=== PATIENT | female | born 1945 | race Caucasian/White ===

== ENCOUNTER 2017-12-18 15:27 | Outpatient (CLI) | payer MEDICARE, OTHER ==
[~2017-12-18 15:27] MED LIST: ISOVUE-370 76%-LOCM 1 ML ONE
--- NOTE | 2017-12-18 18:22 | CT ---
CONTRAST ENHANCED CTA CAROTID ARTERIES: 12/18/17 HISTORY: Carotid artery stenosis, I65.29. Contrast enhanced CTA is performed. 2D and 3D reconstructed images performed on an independent 3D wor kstation. Calcification of the aortic arch seen. The right brachiocephalic artery is patent. Some areas of calcified atherosclerotic plaque seen in the mid right brachiocephalic artery. The right and left subclavian artery is patent. The right and left vertebral arteries are patent. The basilar artery is unremarkable. The right common carotid artery is patent. There is some minimal ath erosclerotic plaque in the distal most aspect of the right CCA extending to the right ICA. More dista lly the right ICA is patent. Left common carotid artery is patent in the proximal mid portions. In the distal most aspect just pro ximal to the bifurcation and at the level of the bifurcation, there is areas of focal atherosclerotic calcified plaque resulting in approximately 50% distal left CCA stenosis. No significant plaque exte nds into the left ICA. Intracranially, the posterior circulation including the posterior cerebral arteries are patent. IMPRESSION: Approximately 50% distal most aspect left common carotid artery calcified plaque. POS: JANICE
== END 2017-12-18 15:28 | disposition home or self-care (01) ==
LOC: BICCT 15:27
PROVIDERS: ATTEND Thoracic Surgery (Cardiothoracic Vascular Surgery)
DX: I65.22 Occlusion and stenosis of left carotid artery (principal)
CPT/HCPCS: 70498; 82565

== ENCOUNTER 2018-02-03 14:54 | Outpatient (CLI) | payer MEDICARE, OTHER | END 2018-02-03 14:55 | disposition home or self-care (01) | LOC: BICMAMMO 14:54 | PROVIDERS: ATTEND Internal Medicine | DX: Z12.31 Encounter for screening mammogram for malignant neoplasm of breast (principal); R92.1 Mammographic calcification found on diagnostic imaging of breast; Z80.3 Family history of malignant neoplasm of breast | CPT/HCPCS: 77063; 77067 ==

== ENCOUNTER 2018-03-15 13:12 | Outpatient (CLI) | payer MEDICARE, OTHER ==
--- NOTE | 2018-03-15 14:53 | RAD ---
LEFT SMALL TOE THREE VIEWS: 03/15/2018 HISTORY: Pain and ulceration, left fifth tarsal bone. History of diabetes. FINDINGS: There is subcutaneous soft tissue swelling about the left small toe. No obvious osseous destruction is present. No fracture or dislocation is identified. There does appear to be fusion of the distal and middle phalanx, which is likely on a developmental basis. IMPRESSION: Prominent subcutaneous soft tissue swelling, left small toe. No obvious osseous destruction is seen to suggest osteomyelitis, based on radiographic evaluation. However, if there is concern for osteomy elitis, MRI is recommended for further evaluation. POS: JANICE
== END 2018-03-15 13:13 | disposition home or self-care (01) ==
LOC: BICRAD 13:12
PROVIDERS: ATTEND Podiatrist
DX: E11.621 Type 2 diabetes mellitus with foot ulcer (principal); L97.529 Non-pressure chronic ulcer of other part of left foot with unspecified severity

== ENCOUNTER 2018-10-13 08:13 | Emergency (ER) | payer MEDICARE, OTHER | END 2018-10-13 09:26 | disposition home or self-care (01) | LOC: ERS 08:13 | DX: I83.891 Varicose veins of right lower extremity with other complications (principal); E10.9 Type 1 diabetes mellitus without complications; E03.9 Hypothyroidism, unspecified; E78.5 Hyperlipidemia, unspecified; E78.00 Pure hypercholesterolemia, unspecified; I10 Essential (primary) hypertension; F32.9 Major depressive disorder, single episode, unspecified; Z79.899 Other long term (current) drug therapy; W26.8XXA Contact with other sharp object(s), not elsewhere classified, initial encounter | CPT/HCPCS: 99283 ==

== ENCOUNTER 2018-12-29 08:48 | Outpatient (CLI) | payer MEDICARE, OTHER ==
--- NOTE | 2018-12-29 10:31 | RAD ---
LEFT FIFTH TOE: HISTORY: Ulcer on fifth toe. COMPARISON: Films of the fifth toe left foot from 03/15/2018. FINDINGS: No osseous abnormality. No fracture or erosive change. No destructive or lytic process. Soft tissue swelling appears unchanged from the prior exam. No evidence of acute osseous abnormality. POS: OFF
== END 2018-12-29 08:49 | disposition home or self-care (01) ==
LOC: BICRAD 08:48
PROVIDERS: ATTEND Podiatrist
DX: L89.90 Pressure ulcer of unspecified site, unspecified stage (principal)

== ENCOUNTER 2019-02-04 09:28 | Outpatient (CLI) | payer MEDICARE, OTHER ==
--- NOTE | 2019-02-04 11:13 | MMO ---
Bilateral MAMMO Bilat Screen [facility]. CLINICAL HISTORY: Patient is 73 years old and is seen for screening. The patient has the following family history of breast cancer: mother, malignant (generic). The patient has no personal history of cancer. The patient has a history of left Excisional Biopsy in 1976 - benign. VIEWS: The views performed were: bilateral craniocaudal with tomosynthesis and bilateral mediolateral oblique with tomosynthesis. FILMS COMPARED: The present examination has been compared to prior imaging studies performed at [facility] on 01/25/2014, 02/07/2015, 02/11/2016 and 02/03/2018. This study has been interpreted with the assistance of computer-aided detection. MAMMOGRAM FINDINGS: The breasts are heterogeneously dense, which could obscure a lesion on mammography. There are benign appearing calcifications seen in both breasts. There are no suspicious masses, suspicious calcifications, or new areas of architectural distortion. IMPRESSION: THERE IS NO MAMMOGRAPHIC EVIDENCE OF MALIGNANCY. A ROUTINE FOLLOW-UP MAMMOGRAM IN 1 YEAR IS RECOMMENDED. THE RESULTS OF THIS EXAM WERE SENT TO THE PATIENT. ACR BI-RADS Category 2 - Benign finding MAMMOGRAPHY NOTE: 1. A negative mammogram report should not delay a biopsy if a dominant of clinically suspicious mass is present. 2. Approximately 10% to 15% of breast cancers are not detected by mammography. 3. Adenosis and dense breasts may obscure an underlying neoplasm. Reported by: ANGELICA CORDON MD Electonically Signed: [id number]
== END 2019-02-04 09:29 | disposition home or self-care (01) ==
LOC: BICMAMMO 09:28
PROVIDERS: ATTEND Internal Medicine
DX: Z12.31 Encounter for screening mammogram for malignant neoplasm of breast (principal); Z80.3 Family history of malignant neoplasm of breast
CPT/HCPCS: 77063; 77067

== ENCOUNTER 2019-04-02 01:54 | Emergency (ER) | payer MEDICARE, OTHER | END 2019-04-02 02:26 | disposition home or self-care (01) | LOC: ERS 01:54 | DX: R21 Rash and other nonspecific skin eruption (principal); T36.8X5A Adverse effect of other systemic antibiotics, initial encounter; L50.9 Urticaria, unspecified; F32.9 Major depressive disorder, single episode, unspecified; E03.9 Hypothyroidism, unspecified; E78.5 Hyperlipidemia, unspecified; E78.00 Pure hypercholesterolemia, unspecified; I10 Essential (primary) hypertension; E10.9 Type 1 diabetes mellitus without complications; Z79.899 Other long term (current) drug therapy | CPT/HCPCS: 99283 ==

== ENCOUNTER 2019-12-09 07:25 | Outpatient (CLI) | payer MEDICARE, OTHER ==
[2019-12-09 16:02] LABS: Hemoglobin 12.4 g/dL (12.0-16.0); Mean Corpuscular HGB CONC 32.9 g/dL (32.0-36.0); Mean Corpuscular Hemoglobin 29.4 pg (27.0-31.0); Mean Corpuscular Volume 89.3 fL (78.0-98.0); Mean Platelet Volume 9.9 fL (7.4-10.4); Platelet Count 149 thou/uL (130-400); RBC Distribution Width 12.8 % (11.5-14.5); Red Blood Cell (RBC) Count 4.22 mill/uL (4.20-5.40); White Blood Cell (WBC) Count 4.6 thou/uL (4.8-10.8)
[2019-12-09 16:34] LABS: Anion Gap 9 mmol/L (10-20); BUN (Urea Nitrogen) 11 mg/dL (9.8-20.1); Calc. Creatinine Clearance 0 mL/min (70-130); Calcium 8.7 mg/dL (7.8-10.44); Carbon Dioxide 28 mmol/L (23-31); Chloride 107 mmol/L (98-107); Estimated GFR-MDRD 66; Glucose 149 mg/dL (83-110); Potassium 4.3 mmol/L (3.5-5.1); Sodium 140 mmol/L (136-145)
[2019-12-10 15:22] LABS: SARS-CoV-2 MS2 Positive; SARS-CoV-2 N Gene Negative; SARS-CoV-2 S Gene Negative; SARS-CoV-2 by NAA Not Detected (NotDetected); SARS-CoV-2 orf1ab Negative
== END 2019-12-09 07:26 | disposition home or self-care (01) ==
LOC: LABBT 07:25
PROVIDERS: ATTEND Thoracic Surgery (Cardiothoracic Vascular Surgery)
DX: Z01.812 Encounter for preprocedural laboratory examination (principal); Z20.828 Contact with and (suspected) exposure to other viral communicable diseases; I65.29 Occlusion and stenosis of unspecified carotid artery
CPT/HCPCS: 80048; 85027; U0003; 87635

== ENCOUNTER 2019-12-09 12:30 | Inpatient (IN) | payer MEDICARE, OTHER ==
[2019-12-14] MEDS ORDERED: Heparin 5,000 UNITS/ML VIAL ONE (06:28)
[2019-12-14] MEDS ORDERED: Protamine Sulfate 50 MG/5 ML VIAL ONE (06:28)
[2019-12-14] MEDS ORDERED: Midazolam HCl 2 mg/2 ml Vial ONE (06:37)
[2019-12-14] MEDS ORDERED: Heparin 10,000 UNITS/ 10 ML VIAL ONE (06:37)
[2019-12-14] MEDS ORDERED: Fentanyl 100 MCG/2 ML VIAL ONE (06:37)
[2019-12-14] MEDS ORDERED: Insulin Regular 300 UNITS/3 ML VIAL ONE (07:18)
[2019-12-14] MEDS ORDERED: Phenylephrine 10 MG/ML VIAL ONE (07:22)
[2019-12-14] MEDS ORDERED: Ondansetron HCl/PF 4 MG/2 ML Vial IVP PRN (08:51)
[2019-12-14] MEDS ORDERED: Fentanyl 100 MCG/2 ML VIAL SLOW IVP PRN (09:00)
[2019-12-14] MEDS ORDERED: Sodium Chloride 0.9% 1,000 ML IV SCH (09:00)
[2019-12-14] MEDS ORDERED: FLUoxetine HCl 20 MG CAP PO SCH (09:00)
[2019-12-14] MEDS ORDERED: SUBCUTANEOUS INSULIN PUMP SC SCH (09:00)
[2019-12-14] MEDS ORDERED: Alogliptin 6.25 MG TAB PO SCH (09:00)
[2019-12-14] MEDS ORDERED: HYDROcodone/Acetaminophen 5/325 mg Tablet PO PRN ×2 (09:00)
[2019-12-14] MEDS ORDERED: Insulin Regular 300 UNITS/3 ML VIAL SC PRN (09:00)
[2019-12-14] MEDS ORDERED: Acetaminophen 325 MG TAB PO PRN (09:00)
[2019-12-14] MEDS ORDERED: Ondansetron PF 4 MG/2 ML Vial IVP PRN (09:00)
[2019-12-14] MEDS ORDERED: Clopidogrel Bisulfate 75 MG TAB PO SCH (09:00)
[2019-12-14] MEDS ORDERED: Aspirin Chewable 81 MG TAB PO SCH (09:00)
[2019-12-14] MEDS ORDERED: Phenylephrine 10 MG/NS 250 ML 250 ML IVPB PRN (09:00)
[2019-12-14] MEDS ORDERED: Rosuvastatin 20 MG TAB PO SCH (09:00)
[2019-12-14] MEDS ORDERED: Nitroglycerin 50 MG/250 ML BOT 250 ML IVPB PRN (09:00)
[2019-12-14 10:37] VITALS: BMI 26.6
[2019-12-14] MEDS ORDERED: Lidocaine 1% PF 5 ML VIAL ONE (11:18)
[2019-12-14] MEDS ORDERED: Dexamethasone 20 MG/5 ML VIAL ONE (11:18)
[2019-12-14] MEDS ORDERED: Ketorolac Tromethamine 30 MG/ML VIAL ONE (11:18)
[2019-12-14] MEDS ORDERED: Labetalol HCl 100 MG/20 ML VIAL ONE (11:18)
[2019-12-14] MEDS ORDERED: PROPOFOL 200 MG/20 ML VIAL ONE (11:18)
[2019-12-14] MEDS ORDERED: Ondansetron PF 4 MG/2 ML Vial ONE (11:18)
[2019-12-14] MEDS ORDERED: Rocuronium Bromide 10 MG/ML (10ML VIAL) ONE (11:18)
[2019-12-14] MEDS ORDERED: EPHEDRINE 25 MG/5 ML SYRINGE ONE (11:18)
[2019-12-14] MEDS ORDERED: Glycopyrrolate 0.2 MG/ML 5 ML SYRINGE ONE ×2 (11:18)
[2019-12-14] MEDS: Amlodipine 10 MG TAB PO SCH (11:27)
--- NOTE | 2019-12-14 11:29 | OP ---
DATE OF PROCEDURE: 12/14/2019 PREOPERATIVE DIAGNOSIS: Severe left carotid stenosis. PROCEDURE PERFORMED: Transcarotid artery revascularization left using an 8 x 40 stent, no balloon. DESCRIPTION OF PROCEDURE: After adequate anesthesia had been obtained, the patient was prepped and draped and Dr. Vega placed a right common femoral venous sheath. I made a slight small incision in the supraclavicular neck mobilizing the common carotid artery. The vagus nerve was not visualized. After a loop had been placed here, the patient was heparinized. A pursestring suture placed in the carotid and after an ACT came back, needle puncture and then wire advanced and a small catheter placed, following which angiograms were obtained. The J-wire was then advanced into the distal common carotid artery, at which time the larger sheath was advanced and secured to the skin. Repeat angiogram was done, following which the carotid artery was clamped proximally, reversal begun and a small wire advanced into the internal carotid artery. The stent was then deployed and completion angiography obtained. There was slight wasting at the common internal junction, however, it was widely patent with good flow. The patient then had the sheath removed from the neck, Prolene sutures secured with good hemostasis. Protamine was then used to reverse the heparin, and the sheath in the groin was removed. There was a small skin bleeder that was secured with a suture. The patient tolerated the procedure. Job ID: [id number]
[2019-12-14] MEDS ORDERED: Lisinopril 10 MG TAB PO SCH (12:00)
[2019-12-14] MEDS: CEFAZOLIN 2 GM in Premix Bag 1 BAG IVPB SCH (15:40)
[2019-12-15] MEDS: CEFAZOLIN 2 GM in Premix Bag 1 BAG IVPB SCH ×2 (00:21→07:26)
[2019-12-15 01:12] VITALS: TEMP 98.2
[2019-12-15] MEDS: Amlodipine 10 MG TAB PO SCH (06:05)
[2019-12-15 06:06] VITALS: BP 170/91
[2019-12-15] MEDS ORDERED: Lisinopril 10 MG TAB PO SCH ×2 (09:00)
== END 2019-12-15 08:30 | disposition home or self-care (01) | DRG 36 ==
LOC: SURG A 12-14 05:58 → CCU 12-14 10:02
PROVIDERS: ADMIT Thoracic Surgery (Cardiothoracic Vascular Surgery); ATTEND Thoracic Surgery (Cardiothoracic Vascular Surgery)
PROC: 037L3DZ Dilation of Left Internal Carotid Artery with Intraluminal Device, Percutaneous Approach (ICD-10-PCS; principal; 2019-12-14)
DX: I65.22 Occlusion and stenosis of left carotid artery (principal); E03.9 Hypothyroidism, unspecified; E78.5 Hyperlipidemia, unspecified; F41.9 Anxiety disorder, unspecified; F32.9 Major depressive disorder, single episode, unspecified; E10.22 Type 1 diabetes mellitus with diabetic chronic kidney disease; N18.9 Chronic kidney disease, unspecified; I12.9 Hypertensive chronic kidney disease with stage 1 through stage 4 chronic kidney disease, or unspecified chronic kidney disease; Z79.899 Other long term (current) drug therapy; Z79.82 Long term (current) use of aspirin; Z79.4 Long term (current) use of insulin; Z90.710 Acquired absence of both cervix and uterus; Z90.49 Acquired absence of other specified parts of digestive tract
CPT/HCPCS: 36416; 76000; C1876; C1884; J0690; J1100; J1642; J1644; J1815; J1885; J2250; J2370; J2405; J2704; J2720; J3010

== ENCOUNTER 2020-02-10 13:24 | Outpatient (CLI) | payer MEDICARE, OTHER ==
--- NOTE | 2020-02-10 14:50 | MMO ---
Bilateral MAMMO Bilat Screen [facility]. CLINICAL HISTORY: Patient is 74 years old and is seen for screening. The patient has the following family history of breast cancer: mother, malignant (generic). The patient has no personal history of cancer. The patient has a history of left Excisional Biopsy in 1976 - benign. VIEWS: The views performed were: bilateral craniocaudal with tomosynthesis and bilateral mediolateral oblique with tomosynthesis. FILMS COMPARED: The present examination has been compared to prior imaging studies performed at [facility] on 02/07/2015, 02/11/2016, 02/03/2018 and 02/04/2019. This study has been interpreted with the assistance of computer-aided detection. MAMMOGRAM FINDINGS: The breasts are heterogeneously dense, which could obscure a lesion on mammography. Benign calcifications are noted bilaterally. There are no suspicious masses, suspicious calcifications, or new areas of architectural distortion. IMPRESSION: THERE IS NO MAMMOGRAPHIC EVIDENCE OF MALIGNANCY. A ROUTINE FOLLOW-UP MAMMOGRAM IN 1 YEAR IS RECOMMENDED. THE RESULTS OF THIS EXAM WERE SENT TO THE PATIENT. ACR BI-RADS Category 2 - Benign finding MAMMOGRAPHY NOTE: 1. A negative mammogram report should not delay a biopsy if a dominant of clinically suspicious mass is present. 2. Approximately 10% to 15% of breast cancers are not detected by mammography. 3. Adenosis and dense breasts may obscure an underlying neoplasm. Reported by: JANE FRANK MD Electonically Signed: [id number]
== END 2020-02-10 13:25 | disposition home or self-care (01) ==
LOC: BICMAMMO 13:24
PROVIDERS: ATTEND Internal Medicine
DX: Z12.31 Encounter for screening mammogram for malignant neoplasm of breast (principal); Z80.3 Family history of malignant neoplasm of breast; Z91.89 Other specified personal risk factors, not elsewhere classified
CPT/HCPCS: 77063; 77067

== ENCOUNTER 2021-02-11 08:21 | Outpatient (CLI) | payer MEDICARE, OTHER | END 2021-02-11 08:22 | disposition home or self-care (01) | LOC: BICMAMMO 08:21 | PROVIDERS: ATTEND Internal Medicine | DX: Z12.31 Encounter for screening mammogram for malignant neoplasm of breast (principal); Z80.3 Family history of malignant neoplasm of breast | CPT/HCPCS: 77063; 77067 ==

== ENCOUNTER 2022-03-06 08:49 | Outpatient (CLI) | payer MEDICARE, OTHER | END 2022-03-06 08:50 | disposition home or self-care (01) | LOC: BICMAMMO 08:49 | PROVIDERS: ATTEND Internal Medicine | DX: Z12.31 Encounter for screening mammogram for malignant neoplasm of breast (principal); Z91.89 Other specified personal risk factors, not elsewhere classified; Z80.3 Family history of malignant neoplasm of breast | CPT/HCPCS: 77063; 77067 ==

== ENCOUNTER 2023-03-13 12:44 | Outpatient (CLI) | payer MEDICARE, OTHER | END 2023-03-13 12:45 | disposition home or self-care (01) | LOC: BICMAMMO 12:44 | PROVIDERS: ATTEND Internal Medicine | DX: Z12.31 Encounter for screening mammogram for malignant neoplasm of breast (principal); Z80.3 Family history of malignant neoplasm of breast; Z91.89 Other specified personal risk factors, not elsewhere classified | CPT/HCPCS: 77063; 77067 ==

== ENCOUNTER 2024-04-11 12:23 | Outpatient (CLI) | payer MEDICARE, OTHER | END 2024-04-11 12:24 | disposition home or self-care (01) | LOC: BICMAMMO 12:23 | PROVIDERS: ATTEND Internal Medicine | DX: Z12.31 Encounter for screening mammogram for malignant neoplasm of breast (principal); Z80.3 Family history of malignant neoplasm of breast; Z91.89 Other specified personal risk factors, not elsewhere classified | CPT/HCPCS: 77063; 77067 ==

== ENCOUNTER 2024-10-30 13:54 | Emergency (ER) | payer MEDICARE, OTHER ==
[2024-10-30 15:01] LABS: Actual Bicarbonate (HCO3v) 24.6 mEq/L (22-28); Base Excess -2.4 mEq/L (-2.0 to +3.0); Calcium, Ionized (venous) 1.10 mmol/L (1.16-1.32); Chloride (VBG) 100 mmol/L (98-106); Hematocrit-VBG 40 % (36.0-47.0); Hemoglobin (Hb) 13.5 g/dL (11.7-16.1); Potassium (VBG) 3.84 mmol/L (3.70-5.30); Sodium 138 mmol/L (133-146)
[2024-10-30 15:03] LABS: Bacteria/HPF 2+ HPF (None Seen); CAUTI Indications for Culture Pelvic or flank pain; Glucose, Urine (Dipstick) Normal (Negative); Leukocyte 500 Leu/uL (Negative); Protein, Urine (Dipstick) Negative (Neg-Trace); RBC/HPF 0-3 HPF (0-3); Specific Gravity, Urine 1.014 (1.002-1.036); WBC/HPF 21-50 HPF (0-3)
[2024-10-30 15:04] LABS: #Basophils Less than 0.03 10x3/uL (0.0-0.2); #Eosinophils 0.23 10x3/uL (0.0-0.7); #Monocytes 0.55 10x3/uL (0.11-0.59); #Neutrophils 3.97 10x3/uL (1.40-6.50); %Basophils 0.3 % (0.0-1.0); %Eosinophils 3.9 % (0.0-10.0); %Lymphocytes 19.5 % (21.0-51.0); %Monocytes 9.3 % (0.0-10.0); %Neutrophils 66.8 % (42.0-75.0); Hematocrit 37.7 % (36.0-47.0); Hemoglobin 12.0 g/dL (12.0-16.0); Mean Corpuscular Hemoglobin 29.3 pg (27.0-31.0); Mean Corpuscular Volume 92.0 fL (78.0-98.0); Platelet Count 195 10x3/uL (130-400); Red Blood Cell (RBC) Count 4.10 mill/uL (4.20-5.40); White Blood Cell (WBC) Count 5.94 10x3/uL (4.8-10.8)
[2024-10-30 15:05] LABS: Urine Culture Reflex Yes Yes
[2024-10-30 15:17] LABS: ALT (SGPT) 11 U/L (Less than 34); AST (SGOT) 26 U/L (11-34); Albumin 3.7 g/dL (3.1-4.5); Alkaline Phosphatase 76 U/L (40-110); Anion Gap 14 mmol/L (10-20); BUN (Urea Nitrogen) 23 mg/dL (9.8-20.1); Bilirubin, Total 0.2 mg/dL (0.3-1.2); Calc. Creatinine Clearance 0 mL/min (70-130); Calcium 8.6 mg/dL (7.8-10.44); Carbon Dioxide 26 mmol/L (23-31); Chloride 102 mmol/L (98-107); Globulin 3.0 g/dL (2.4-3.5); Glucose 174 mg/dL (83-110); Potassium 3.8 mmol/L (3.5-5.1); Sodium 138 mmol/L (136-145)
[2024-10-30] MEDS ORDERED: Iopamidol-370 76% 500 ML MDV (1 ML CHARGE) ONE (15:57)
[2024-10-30] MEDS ORDERED: cefTRIAXone (ROCEPHIN) 2 GM VIAL ONE (16:02)
== END 2024-10-30 17:25 | disposition home or self-care (01) ==
LOC: ERS 13:54
DX: K62.89 Other specified diseases of anus and rectum (principal); N39.0 Urinary tract infection, site not specified; E10.9 Type 1 diabetes mellitus without complications; I10 Essential (primary) hypertension; E78.00 Pure hypercholesterolemia, unspecified; E03.9 Hypothyroidism, unspecified; Z55.6 Problems related to health literacy
CPT/HCPCS: 74177; 80053; 81001; 82010; 82805; 83605; 85025; 87040; 87077; 87086; 87186; 93005; 94760; 96374; 99284; J0696; Q9967

== ENCOUNTER 2024-11-07 02:05 | Inpatient (IN) | payer MEDICARE, OTHER ==
[2024-11-07] MEDS ORDERED: Ondansetron PF 4 MG/2 ML Vial ONE ×2 (02:32→06:53)
[2024-11-07 04:23] VITALS: BMI 23.7
[2024-11-07] MEDS ORDERED: Rocuronium Bromide 10 MG/ML (10ML VIAL) ONE (06:53)
[2024-11-07] MEDS ORDERED: fentaNYL PF 100 MCG/2 ML SYRINGE ONE (06:53)
[2024-11-07] MEDS ORDERED: PROPOFOL 40 ML ONE (06:53)
[2024-11-07] MEDS ORDERED: Lidocaine 1% PF 5 ML VIAL ONE (06:53)
[2024-11-07] MEDS ORDERED: SUGAMMADEX SODIUM 200 MG/2 ML VIAL ONE (06:54)
[2024-11-07] MEDS ORDERED: Heparin 5,000 UNITS/ML VIAL ONE (06:55)
[2024-11-07] MEDS ORDERED: Acetaminophen 325 MG TAB ONE (06:55)
[2024-11-07] MEDS ORDERED: metroNIDAZOLE 500 MG (100 mL) BAG ONE (06:56)
[2024-11-07] MEDS ORDERED: CEFAZOLIN 2 GM VIAL ONE (06:56)
[2024-11-07] MEDS ORDERED: Bupivacaine 0.25% HCL 30 ML VIAL ONE (07:05)
[2024-11-07] MEDS ORDERED: diphenhydrAMINE 50 MG/ML VIAL ONE (07:56)
[2024-11-07] MEDS ORDERED: PHENYLEPHRINE-NS 100 MCG/ML 10 ML SYRINGE ONE (07:56)
[2024-11-07] MEDS ORDERED: hydrALAZINE 20 MG/ML VIAL SLOW IVP PRN (09:23)
[2024-11-07] MEDS ORDERED: HYDROmorphone 2 MG/ML VIAL ONE (09:33)
[2024-11-07] MEDS: Rosuvastatin 20 MG TAB PO SCH (14:37)
[2024-11-07] MEDS: Acetaminophen 325 MG TAB PO PRN (18:14)
[2024-11-07] MEDS: Acetaminophen 325 MG TAB ONE (18:38)
[2024-11-08] MEDS: Ondansetron PF 4 MG/2 ML Vial IVP PRN (00:09)
[2024-11-08 04:48] LABS: #Basophils Less than 0.03 10x3/uL (0.0-0.2); #Eosinophils Less than 0.03 10x3/uL (0.0-0.7); #Monocytes 0.71 10x3/uL (0.11-0.59); #Neutrophils 6.20 10x3/uL (1.40-6.50); %Basophils 0.1 % (0.0-1.0); %Eosinophils 0.1 % (0.0-10.0); %Lymphocytes 8.3 % (21.0-51.0); %Monocytes 9.4 % (0.0-10.0); %Neutrophils 81.7 % (42.0-75.0); Hematocrit 31.8 % (36.0-47.0); Hemoglobin 10.4 g/dL (12.0-16.0); Mean Corpuscular Hemoglobin 28.8 pg (27.0-31.0); Mean Corpuscular Volume 88.1 fL (78.0-98.0); Platelet Count 152 10x3/uL (130-400); Red Blood Cell (RBC) Count 3.61 mill/uL (4.20-5.40); White Blood Cell (WBC) Count 7.59 10x3/uL (4.8-10.8)
[2024-11-08 05:12] LABS: Anion Gap 15 mmol/L (10-20); BUN (Urea Nitrogen) 11 mg/dL (9.8-20.1); Calc. Creatinine Clearance 60 mL/min (70-130); Calcium 8.1 mg/dL (7.8-10.44); Carbon Dioxide 18 mmol/L (23-31); Chloride 91 mmol/L (98-107); Glucose 286 mg/dL (83-110); Potassium 4.5 mmol/L (3.5-5.1); Sodium 119 mmol/L (136-145)
[2024-11-08 06:57] LABS: Sodium 119 mmol/L (136-145)
[2024-11-08] MEDS ORDERED: Dextrose 50% Abboject 50 ML SYRINGE SLOW IVP PRN (07:28)
[2024-11-08] MEDS ORDERED: Glucagon 1 MG/ML KIT IM PRN (07:28)
[2024-11-08] MEDS: Enoxaparin 40 MG (0.4 mL) SYRINGE SC SCH (09:20)
[2024-11-08] MEDS: Metoprolol Succinate XL 25 MG ER.TAB PO SCH (09:20)
[2024-11-08] MEDS: Ezetimibe 10 MG TAB PO SCH (09:21)
[2024-11-08] MEDS: Lisinopril 10 MG TAB PO SCH (09:21)
[2024-11-08] MEDS: Pantoprazole 40 MG DR.TAB PO SCH (09:21)
[2024-11-08 15:44] LABS: Sodium 122 mmol/L (136-145)
[2024-11-09 05:24] LABS: #Basophils Less than 0.03 10x3/uL (0.0-0.2); #Eosinophils 0.12 10x3/uL (0.0-0.7); #Monocytes 0.66 10x3/uL (0.11-0.59); #Neutrophils 4.18 10x3/uL (1.40-6.50); %Basophils 0.2 % (0.0-1.0); %Eosinophils 2.1 % (0.0-10.0); %Lymphocytes 11.9 % (21.0-51.0); %Monocytes 11.7 % (0.0-10.0); %Neutrophils 73.9 % (42.0-75.0); Hematocrit 30.0 % (36.0-47.0); Hemoglobin 9.9 g/dL (12.0-16.0); Mean Corpuscular Hemoglobin 29.6 pg (27.0-31.0); Mean Corpuscular Volume 89.6 fL (78.0-98.0); Platelet Count 158 10x3/uL (130-400); Red Blood Cell (RBC) Count 3.35 mill/uL (4.20-5.40); White Blood Cell (WBC) Count 5.65 10x3/uL (4.8-10.8)
[2024-11-09 05:40] LABS: Anion Gap 9 mmol/L (10-20); BUN (Urea Nitrogen) 14 mg/dL (9.8-20.1); Calc. Creatinine Clearance 65 mL/min (70-130); Calcium 8.1 mg/dL (7.8-10.44); Carbon Dioxide 22 mmol/L (23-31); Chloride 102 mmol/L (98-107); Glucose 210 mg/dL (83-110); Potassium 3.7 mmol/L (3.5-5.1); Sodium 129 mmol/L (136-145)
[2024-11-09 07:54] VITALS: BP 155/71; TEMP 97.3
[2024-11-09] MEDS: Rosuvastatin 20 MG TAB PO SCH (08:28)
== END 2024-11-09 14:30 | disposition home or self-care (01) | DRG 330 ==
LOC: ERS 02:05 → ERHOLD 02:36 → SURG A 10:35
PROVIDERS: ADMIT Student in an Organized Health Care Education/Training Program; ATTEND Student in an Organized Health Care Education/Training Program
PROC: 0DTN0ZZ Resection of Sigmoid Colon, Open Approach (ICD-10-PCS; principal; 2024-11-07)
PROC: 0DQP0ZZ Repair Rectum, Open Approach (ICD-10-PCS; 2024-11-07)
PROC: 3E03329 Introduction of Other Anti-infective into Peripheral Vein, Percutaneous Approach (ICD-10-PCS; 2024-11-07)
DX: K62.3 Rectal prolapse (principal); E87.1 Hypo-osmolality and hyponatremia; D64.9 Anemia, unspecified; I10 Essential (primary) hypertension; E78.5 Hyperlipidemia, unspecified; Z98.890 Other specified postprocedural states; Z90.49 Acquired absence of other specified parts of digestive tract; Z80.41 Family history of malignant neoplasm of ovary; E11.65 Type 2 diabetes mellitus with hyperglycemia; Z79.899 Other long term (current) drug therapy; Z79.890 Hormone replacement therapy; Z79.82 Long term (current) use of aspirin
CPT/HCPCS: 36415; 36416; 80048; 85025; 88307; 96374; 96375; J0169; J0665; J1100; J1171; J1200; J1644; J1650; J1815; J2270; J2405; J2704; J7030; S2900